=== PATIENT | female | born 1970 | race Two or more races ===

== ENCOUNTER 2023-07-31 20:50 | Emergency (ER) | payer OTHER ==
[~2023-07-31] VITALS: Ht 157.5 cm; Wt 87.1 kg
[2023-07-31] MEDS ORDERED: QBRELIS1 MG/1 ML PO (21:11)
[2023-07-31] MEDS ORDERED: CARDIZEM30 MG PO (21:11)
[2023-07-31] MEDS ORDERED: CARDURA1 MG (21:11)
[2023-07-31] MEDS ORDERED: LANTUS SOL100 UNIT/1 SQ (21:11)
[2023-07-31] MEDS ORDERED: EZALLOR SPRINKLE5 MG PO (21:11)
[2023-07-31] MEDS ORDERED: TETRACAINE HCL 20 DR/ML DROPS OP ONE (23:15)
[2023-07-31] MEDS ORDERED: GENTAMICIN SULFATE 0.15 MG/DR DROPS 5ML OP ONE (23:15)
== END 2023-08-01 00:12 | disposition home or self-care (01) ==
LOC: ER 20:51
DX: H10.12 Acute atopic conjunctivitis, left eye (principal); E11.9 Type 2 diabetes mellitus without complications; Z79.4 Long term (current) use of insulin; I10 Essential (primary) hypertension

== ENCOUNTER 2023-09-04 19:23 | Emergency (ER) | payer OTHER ==
[~2023-09-04] VITALS: Ht 157.5 cm; Wt 88.5 kg
[~2023-09-04 19:23] MED LIST: CARDIZEM30 MG PO; CARDURA1 MG; EZALLOR SPRINKLE5 MG PO; LANTUS SOL100 UNIT/1 SQ; QBRELIS1 MG/1 ML PO
[2023-09-04] MEDS ORDERED: ROSUVASTATIN CA20 MG PO (19:50)
[2023-09-04] MEDS ORDERED: ZYRTEC10 M3 PO (19:50)
[2023-09-04] MEDS ORDERED: HUMALOG100 UNIT/2 (19:51)
[2023-09-04] MEDS ORDERED: FAMOTIDINE/PF 20 MG/2 ML VIAL IV ONE (20:15)
[2023-09-04] MEDS ORDERED: ONDANSETRON HCL 2 MG/ML VIAL IV ONE (20:15)
[2023-09-04] MEDS ORDERED: 0.9 % SODIUM CHLORIDE 500 ML IV SCH (20:15)
[2023-09-04 20:42] LABS: HEMOGLOBIN 13.9 g/dL (12.0-15.00); MEAN CELL VOLUME 82.1 fL (80.00-100.00); MEAN CORPUSCULAR HEMOGLOBIN 27.8 pg (27.00-32.0); MEAN CORPUSCULAR HGB CONC 33.8 g/dl (32.0-36.0); PLATELET COUNT 219 K/uL (150-450); RED BLOOD COUNT 4.99 M/uL (4.00-6.00)
[2023-09-04 21:24] LABS: BILIRUBIN TOTAL 0.44 mg/dL (0.3-1.2); BILIRUBIN,CONJUGATED 0.14 mg/dL (0.0-0.2); BILIRUBIN,UNCONJUGATED 0.3 mg/dL (0.0-0.6); CALCIUM 9.4 mg/dL (8.5-10.1); CREATININE SERUM 0.9 mg/dL (0.55-1.02); GFR 65.5; POTASSIUM 3.93 mEq/L (3.5-5.1)
[2023-09-04 21:54] LABS: URINE APPEARANCE Clear; URINE BILIRRUBIN Negative (NEGATIVE); URINE BLOOD Negative; URINE COLOR Yellow; URINE LEUKOCYTE Negative; URINE NITRATE Negative; URINE PROTEIN Negative (NEGATIVE); URINE UROBILINOGEN 0.2 E.U./dl
[2023-09-04 22:02] LABS: URINE BACTERIA 386.8 uL (0.0-1933); URINE EPITHELIAL CELLS 12.3 uL (0.0-38.8); URINE RBC 15.6 uL (0.0-20.8)
[2023-09-04 22:08] LABS: URINE GLUCOSE 250 MG/DL (NEGATIVE)
[2023-09-04] MEDS ORDERED: DICY20TA PO (23:47)
[2023-09-04] MEDS ORDERED: PEPCID AC20 MG PO (23:47)
[2023-09-04] MEDS ORDERED: ZOFRAN8 MG PO (23:47)
== END 2023-09-04 23:53 | disposition home or self-care (01) ==
LOC: ER 19:24
PROVIDERS: General Practice
DX: K29.00 Acute gastritis without bleeding (principal); R10.13 Epigastric pain
CPT/HCPCS: 36415; 96365; 96366; 99282; J2405; J3490; J7042

== ENCOUNTER 2024-05-28 07:23 | Emergency (ER) | payer OTHER ==
[~2024-05-28] VITALS: Ht 157.5 cm; Wt 95.3 kg
[~2024-05-28 07:23] MED LIST changes: +DICY20TA PO; +HUMALOG100 UNIT/2; +PEPCID AC20 MG PO; +ROSUVASTATIN CA20 MG PO; +ZOFRAN8 MG PO; +ZYRTEC10 M3 PO
== END 2024-05-28 10:32 | disposition home or self-care (01) ==
LOC: ER 07:25
DX: R53.81 Other malaise (principal); J06.9 Acute upper respiratory infection, unspecified; Z20.822 Contact with and (suspected) exposure to COVID-19